=== PATIENT | male | born 1955 | race Caucasian/White ===

== ENCOUNTER 2018-07-02 12:34 | Inpatient (IN) ==
--- NOTE | 2018-07-02 13:07 | ED ---
HPI General Chief complaint: Shortness of Breath/Dyspnea Stated complaint: bilat ankle swelling/rt knee pain/lt hand tingling Time Seen by Provider: 07/02/18 12:53 Source: patient Mode of arrival: ambulatory Limitations: no limitations History of Present Illness HPI narrative: 63-year-old male with history of hypertension on amlodipine, enlarged prostate, chronic back pain, [facility] bilateral lower extremity edema, left hand numbness, dyspnea, right knee pain. Patient reports that the symptoms started 5 days ago. His bilateral lower extremity edema seems to be better in the morning, worse at night. He has some dyspnea at rest which is worse with exertion as well as orthopnea. Patient also complains of right medial knee pain, denying any specific trauma. His pain is mild to moderate, worse with movements and palpation. Denies history of DVT or PE. No chest pain. No cough or hemoptysis. No fevers or chills. Patient is also noticed numbness throughout his entire left hand which also started 5 days ago. He denies weakness in the hand or any focal weakness or paresthesias anywhere else. Related Data Home Medications Medication Instructions Recorded Confirmed amlodipine 10 mg PO DAILY 07/02/18 07/02/18 doxepin 50 mg PO DAILY 07/02/18 07/02/18 gabapentin 600 mg PO DAILY 07/02/18 07/02/18 metoprolol tartrate 50 mg PO DAILY 07/02/18 07/02/18 morphine 30 mg PO DAILY 07/02/18 07/02/18 oxycodone-acetaminophen 1 tab PO Q4-6H PRN 07/02/18 07/02/18 Allergies Allergy/AdvReac Type Severity Reaction Status Date / Time shellfish derived Allergy Anaphylaxis Verified 07/02/18 12:41 Review of Systems ROS: all other systems reviewed are negative PMFSH Medical History Medical History Chronic back pain (Acute) Enlarged prostate (Acute) Hypertension (Acute) Surgical History Surgical History History of appendectomy (Acute) Social History Social History Smoking Status: Never smoker How Often Do You Have a Drink Containing Alcohol: Never Recent Travel in [facility] within the Last 8 Weeks: No Recent Out of Country Travel within the Last 8 Weeks: No Immunization History Tetanus Immunization: <5 Years Exam Narrative Exam Narrative: GENERAL: Well-developed, well-nourished, comfortable, no acute distress. SKIN: Focused skin assessment warm/dry. HEAD: Atraumatic. Normocephalic. EYES: Pupils equal and round. No scleral icterus. No injection or drainage. ENT: Mucous membranes pink and moist. NECK: Trachea midline. No JVD. CARDIOVASCULAR: Regular rate and rhythm. Distal pulses brisk and equal bilaterally. RESPIRATORY: No accessory muscle use. Clear to auscultation. Breath sounds equal bilaterally. GASTROINTESTINAL: Abdomen soft, non-tender, nondistended. MUSCULOSKELETAL: No obvious deformities. No clubbing. No cyanosis. Moderate bilateral lower extremity edema from foot to knee, right greater than left. Bilateral calves are supple and nontender. There is mild tenderness to the right medial knee without skin changes, without obvious deformity, with normal range of motion. Normal cipher expert strength in left hand. NEUROLOGICAL: Awake and alert. No obvious cranial nerve deficits. Motor grossly within normal limits. Normal speech. No focal deficits. Perceived diminished sensation in left hand. PSYCHIATRIC: Appropriate mood and affect; insight and judgment normal. Course Initial Documented Vital Signs Temperature 98.4 F 07/02/18 12:35 Pulse Rate 115 H 07/02/18 12:35 Respiratory Rate 16 07/02/18 12:35 Blood Pressure 126/65 07/02/18 12:35 Pulse Oximetry 97 07/02/18 12:35 Last Documented Vital Signs Temperature 98.4 F 07/02/18 12:35 Pulse Rate 95 H 07/02/18 14:47 Respiratory Rate 20 07/02/18 14:47 Blood Pressure 118/77 07/02/18 14:47 Pulse Oximetry 95 07/02/18 14:47 Medical Decision Making [facility] Narrative Medical decision making narrative: Vital signs reviewed. CBC is remarkable for hemoglobin 10.1, hematocrit 30.9, WBC 1.9, manual neutrophil count of 0.4. Platelet count is 150. CMP is essentially unremarkable. Calculated ANC is 416. Chest x-ray shows no acute disease. Right knee x-ray shows minimal arthritis at the patellofemoral joint. Bilateral lower extremity venous duplex is negative for DVT. Patient was made aware of all findings. States that he has never been told of being neutropenic or anemic in the past. He has not been on any new medications other than doxepin for sleep that was started about 2 months ago. He has not had any fevers. He denies history of HIV or HIV risk factors. No history of IV drug abuse. He does complain of dyspnea and having a difficult time catching his breath especially after exertion. He has not had any melena or hematochezia. Given his severe neutropenia as well as anemia and slight thrombo-cytopenia, the patient will be admitted for further treatment and evaluation and hematology consultation. He was placed on neutropenic precautions. Case discussed with hospitalist Dr. Garcia who will admit the patient to his service. Medical Screen Exam Complete: Yes Emergency Medical Condition: Yes Differential Diagnosis Differential Diagnosis: Pulmonary edema, fluid overload, DVT, metabolic abnormality/electrolyte abnormality, CVA unlikely, venous insufficiency Lab Data Result diagrams: 07/02/18 13:12 07/02/18 13:12 Lab Results 07/02/18 07/02/18 07/02/18 Range/Units 13:12 13:12 13:12 CBC w Diff Slide review pending WBC 1.6 L (4.0-11.0) th/mm3 RBC 3.51 L (4.50-5.90) mil/mm3 Hgb 10.1 L (13.0-17.0) gm/dL Hct 30.9 L (39.0-51.0) % MCV 88.1 (80.0-100.0) fL MCH 28.8 (27.0-34.0) pg MCHC 32.7 (32.0-36.0) % RDW 15.0 (11.6-17.2) % Plt Count 150 (150-450) th/mm3 MPV 9.3 (7.0-11.0) fL WBC Differential Manual diff final Seg Neuts % (Manual) 26 (16-70) % Lymphocytes % (Manual) 59 H (9-44) % Atypical Lymphs % (Man) 8 H (0-0) % Monocytes % (Manual) 5 (0-8) % Eosinophils % (Manual) 2 (0-4) % Abs Neuts (Manual) 0.4 L* (1.8-7.7) th/mm3 Differential Comment . Platelet Estimate Normal (Normal) Platelet Morphology Normal (Normal) Basophilic Stippling Faint H (None) Ovalocytes 1+ H (None) Rouleaux Present H (None) PT 10.9 (9.8-11.6) sec INR 1.1 Ratio APTT 25.7 (23.4-31.7) sec Sodium 138 (136-145) meq/L Potassium 3.6 (3.5-5.1) meq/L Chloride 106 (98-107) meq/L Carbon Dioxide 27.2 (21.0-32.0) meq/L Anion Gap 5 (5-15) meq/L BUN 14 (7-18) mg/dL Creatinine 0.95 (0.60-1.30) mg/dL Estimated GFR 81 L (>89) mL/min Random Glucose 108 H (74-106) mg/dL Calcium 8.4 L (8.5-10.1) mg/dL Total Bilirubin 0.5 (0.2-1.0) mg/dL AST 12 L (15-37) U/L ALT 27 (12-78) U/L Alkaline Phosphatase 46 (45-117) U/L Total Creatine Kinase 115 (39-308) U/L CK-MB (CK-2) 1.2 (0.5-3.6) ng/mL Troponin I Less than 0.02 L (0.02-0.05) ng/mL B-Natriuretic Peptide (0-100) pg/mL Total Protein 7.0 (6.4-8.2) g/dL Albumin 3.8 (3.4-5.0) g/dL 07/02/18 Range/Units 13:12 CBC w Diff WBC (4.0-11.0) th/mm3 RBC (4.50-5.90) mil/mm3 Hgb (13.0-17.0) gm/dL Hct (39.0-51.0) % MCV (80.0-100.0) fL MCH (27.0-34.0) pg MCHC (32.0-36.0) % RDW (11.6-17.2) % Plt Count (150-450) th/mm3 MPV (7.0-11.0) fL WBC Differential Seg Neuts % (Manual) (16-70) % Lymphocytes % (Manual) (9-44) % Atypical Lymphs % (Man) (0-0) % Monocytes % (Manual) (0-8) % Eosinophils % (Manual) (0-4) % Abs Neuts (Manual) (1.8-7.7) th/mm3 Differential Comment Platelet Estimate (Normal) Platelet Morphology (Normal) Basophilic Stippling (None) Ovalocytes (None) Rouleaux (None) PT (9.8-11.6) sec INR Ratio APTT (23.4-31.7) sec Sodium (136-145) meq/L Potassium (3.5-5.1) meq/L Chloride (98-107) meq/L Carbon Dioxide (21.0-32.0) meq/L Anion Gap (5-15) meq/L BUN (7-18) mg/dL Creatinine (0.60-1.30) mg/dL Estimated GFR (>89) mL/min Random Glucose (74-106) mg/dL Calcium (8.5-10.1) mg/dL Total Bilirubin (0.2-1.0) mg/dL AST (15-37) U/L ALT (12-78) U/L Alkaline Phosphatase (45-117) U/L Total Creatine Kinase (39-308) U/L CK-MB (CK-2) (0.5-3.6) ng/mL Troponin I (0.02-0.05) ng/mL B-Natriuretic Peptide 34 (0-100) pg/mL Total Protein (6.4-8.2) g/dL Albumin (3.4-5.0) g/dL Imaging Data Radiologist's impression: Chest X-Ray 07/02/18 12:59 CONCLUSION: Negative for acute process Knee X-Ray 07/02/18 12:59 CONCLUSION: Minimal degenerative change in the patellofemoral joint with no acute fracture or malalignment. Venous Doppler Study 07/02/18 12:59 CONCLUSION: 1. Negative for deep venous thrombosis Discharge Plan Discharge Disposition Patient Disposition: ED Admit(ED Internal Use Only) Discharge Condition Condition: Stable Discharge Order Discharge Orders: ED Use Only Admit Order (Routine); Ordered 07/02/18 Ordered By: Oscar Leonard Discharge Details Diagnosis: Neutropenic, Leukopenia, Anemia, Leg edema Physicians Team ED Provider: Oscar Leonard Primary Care Provider: [facility]ician 's Attending Provider: Armando Garcia Status ED Status: Admitted Patient
[2018-07-02 13:32] LABS: Chloride 106 meq/L (98-107); Potassium 3.6 meq/L (3.5-5.1); Sodium 138 meq/L (136-145)
[2018-07-02 13:35] LABS: Albumin 3.8 g/dL (3.4-5.0); Anion Gap 5 meq/L (5-15); Calcium 8.4 mg/dL (8.5-10.1); Carbon Dioxide 27.2 meq/L (21.0-32.0)
[2018-07-02 13:36] LABS: Blood Urea Nitrogen 14 mg/dL (7-18); Glucose,Random 108 mg/dL (74-106)
[2018-07-02 13:38] LABS: Activated Partial Thrombo Time 25.7 sec (23.4-31.7); Alanine Aminotransferase 27 U/L (12-78); INR 1.1 Ratio; Prothrombin Time 10.9 sec (9.8-11.6)
[2018-07-02 13:39] LABS: Aspartate Aminotransferase 12 U/L (15-37); Glomerular Filtration Rate 81 mL/min (>89)
[2018-07-02 13:40] LABS: Hematocrit 30.9 % (39.0-51.0); Hemoglobin 10.1 gm/dL (13.0-17.0); Mean Corpuscular HGB Conc 32.7 % (32.0-36.0); Mean Corpuscular Hemoglobin 28.8 pg (27.0-34.0); Mean Corpuscular Volume 88.1 fL (80.0-100.0); Mean Platelet Volume 9.3 fL (7.0-11.0); Platelet Count 150 th/mm3 (150-450); Red Blood Count 3.51 mil/mm3 (4.50-5.90)
[2018-07-02 13:41] LABS: Alkaline Phosphatase 46 U/L (45-117); Creatine Kinase 115 U/L (39-308)
--- NOTE | 2018-07-02 13:49 | XR ---
EXAM DATE: 07/02/2018 1:29 PM EST AGE/SEX: 63 years / Male INDICATIONS: Right knee pain and swelling from unknown injury. CLINICAL DATA: This is the patient's initial encounter. Patient reports that signs and symptoms have been present for 1 day and indicates a pain score of 4/10. MEDICAL/SURGICAL HISTORY: None. None. COMPARISON: No prior exams available for comparison. FINDINGS: Bony structures are intact and in normal alignment. Joints are intact without dislocation or signifi cant arthropathy. There is minimal spurring in the patellofemoral joint. Osseous density is normal. Soft tissues are unremarkable. No radiopaque foreign bodies seen. CONCLUSION: Minimal degenerative change in the patellofemoral joint with no acute fracture or malalignment. Electronically signed by: Da Sawyer MD Board Certified Radiologist 07/02/2018 1:48 PM EST
--- NOTE | 2018-07-02 13:51 | US ---
EXAM DATE: 07/02/2018 1:48 PM EST AGE/SEX: 63 years / Male INDICATIONS: Bilateral leg swelling. CLINICAL DATA: This is the patient's initial encounter. Patient reports that signs and symptoms have been present for 4 - 6 days and indicates a pain score of 5/10. MEDICAL/SURGICAL HISTORY: . Chronic back pain. HTN. Appendectomy. COMPARISON: No prior exams available for comparison. TECHNIQUE: Venous ultrasound of both lower extremities was performed from the inguinal ligament to t he proximal calf. Real-time, color Doppler and spectral tracing, compression and augmentation techni ques were used. FINDINGS: Right Leg: Normal compression of the deep venous system from the inguinal region to the proximal bam f. No echogenic clot is seen. Normal response of the venous system to augmentation and respiration. Left Leg: Normal compression of the deep venous system from the inguinal region to the proximal calf . No echogenic clot is seen. Normal response of the venous system to augmentation and respiration. CONCLUSION: 1. Negative for deep venous thrombosis Electronically signed by: Joe Coelho MD Board Certified Radiologist 07/02/2018 1:50 PM EST
[2018-07-02 13:53] LABS: Creatine Kinase MB 1.2 ng/mL (0.5-3.6)
--- NOTE | 2018-07-02 13:57 | XR ---
EXAM DATE: 07/02/2018 1:30 PM EST AGE/SEX: 63 years / Male INDICATIONS: Short of breath. CLINICAL DATA: This is the patient's initial encounter. Patient reports that signs and symptoms have been present for 1 day and indicates a pain score of 0/10. MEDICAL/SURGICAL HISTORY: None. None. COMPARISON: No prior exams available for comparison. FINDINGS: A single AP view of the chest demonstrates the lungs to be symmetrically aerated without evidence of mass, infiltrate or effusion. The cardiomediastinal contours are unremarkable. Osseous structures a re intact. CONCLUSION: Negative for acute process Electronically signed by: Joe Coelho MD Board Certified Radiologist 07/02/2018 1:55 PM EST
[2018-07-02 14:06] LABS: White Blood Count 1.6 th/mm3 (4.0-11.0)
[2018-07-02 14:21] LABS: Atypical Lymphs 8 % (0-0); Eosinophils 2 % (0-4); Lymphocytes 59 % (9-44); Monocytes 5 % (0-8)
[2018-07-02 14:25] LABS: Ovalocytes 1+; Platelet Estimate Normal (Normal); Platelet Morphology Normal (Normal); Rouleaux Present
[2018-07-02] MEDS ORDERED: Acetaminophen 325 MG Tablet PO PRN (15:08)
[2018-07-02] MEDS: oxyCODONE/Acetaminophen 10/325 Tablet PO PRN ×2 (15:32→21:25)
--- NOTE | 2018-07-02 17:31 | P.HPIM ---
History of Present Illness Primary Care Physician: [facility] Chief Complaint: Leg Swelling, Dyspnea History of Present Illness: Mr. Gramajo is a 63-year-old male. He comes into the hospital today complaining of bilateral lower extremity swelling. He is also been having some mild shortness of breath. Workup reveals that he has a significant neutropenia. He has no prior history of neutropenia. No familial history of neutropenia. Baseline medical conditions are hypertension he is on amlodipine which may be contributory to his bilateral lower extremity edema but he says has been on this for 2 years without problems. Etiology for the neutropenia could also be related to bilateral lower extremity edema and pulmonary edema. No changes in back pain. Benign prostatic hypertrophy is present at baseline, he takes doxepin for this and started this recently. No other complaints at this time. Inpatient Certification Inpatient Certification: I certify that the inpatient services were ordered in accordance with Medicare regulations governing the order. This includes certification that hospital inpatient services are reasonable and necessary and in the case of services not specified as inpatient-only under 42 CFR 419.22(n), that they are appropriately provided as inpatient services in accordance to with the 2-midnight benchmark under 43 CFR 412.3(e) Estimated Total Length of Stay (Days): 5 Plans for Post Hospital Care: Not yet determined Review of Systems Constitutional: No fevers, no chills no night sweats, no fatigue, no weakness Eyes: No eye pain, no blurry vision, no loss of vision ENT: No sore throat, no ear pain, no rhinorrhea Cardiovascular: No chest pain, no tachycardia, no palpitations, no syncope Respiratory: No wheezing, no cough, shortness of breath Gastrointestinal: No abdominal pain, no black tarry stools, no bright red blood per rectum, no vomiting, no diarrhea Musculoskeletal: No joint pain, no muscle cramps, no stiffness, bilateral lower extremity edema Integumentary: No rash, no ulcers, no drainage Neurologic: No sensory loss, no loss of motor function, no dizziness Psychiatric: No behavioral changes, no hallucinations, no suicidal ideations [facility] Medical History Medical History Chronic back pain (Acute) Enlarged prostate (Acute) Hypertension (Acute) Surgical History Surgical History History of appendectomy (Acute) Family History Family History Other Osteoarthritis Social History Social History Substance History: No History of Abuse Second Hand Smoke Exposure: No Smoking Status: Never smoker How Often Do You Have a Drink Containing Alcohol: Never Recent Travel in [facility] within the Last 8 Weeks: No Recent Out of Country Travel within the Last 8 Weeks: No Immunization History Tetanus Immunization: <5 Years Medications and Allergies Allergies Allergy/AdvReac Type Severity Reaction Status Date / Time shellfish derived Allergy Anaphylaxis Verified 07/02/18 12:41 Home Medications Medication Instructions Recorded Confirmed Type amlodipine 10 mg PO DAILY 07/02/18 07/02/18 History doxepin 50 mg PO DAILY 07/02/18 07/02/18 History gabapentin 600 mg PO DAILY 07/02/18 07/02/18 History metoprolol tartrate 50 mg PO DAILY 07/02/18 07/02/18 History morphine 30 mg PO DAILY 07/02/18 07/02/18 History oxycodone-acetaminophen 1 tab PO Q4-6H PRN 07/02/18 07/02/18 History Active Medications: Active Medications Acetaminophen (Tylenol) 650 mg PO Q4H PRN PRN Reason: Temp > 100.4 Al Hydroxide/Mg Hydroxide (Milk Of [place] Linkkami [place]) 30 ml PO Q12H PRN PRN Reason: Mild Constipation Enalaprilat (Vasotec Inj) 1.25 mg IV.PUSH Q6H PRN PRN Reason: SBP>160, DBP>90 Furosemide (Lasix Inj) 20 mg IV.PUSH ONCE ONE Stop: 07/02/18 17:21 Gabapentin (Neurontin) 600 mg PO DAILY MARKIE Metoprolol Tartrate (Lopressor) 50 mg PO DAILY MARKIE Morphine Sulfate (Oramorph Sr) 30 mg PO DAILY MARKIE Ondansetron HCl (Zofran Inj) 4 mg IV.PUSH Q6H PRN PRN Reason: NAUSEA OR VOMITING Oxycodone/Acetaminophen (Percocet 10/325 Mg) 1 tab PO Q4H PRN PRN Reason: Pain 7 to 10 Last Admin: 07/02/18 15:32 Dose: 1 tab Oxycodone/Acetaminophen (Percocet 5/325 Mg) 1 tab PO Q4H PRN PRN Reason: Pain 3 to 6 Sodium Chloride (Ns Flush) 2 ml IV.FLUSH BID MARKIE Sodium Chloride (Ns Flush) 2 ml IV.FLUSH PRN PRN PRN Reason: FLUSH AFTER USING IV ACCESS Physical Exam Vital signs: Vital Signs 07/02/18 12:35 07/02/18 12:59 07/02/18 13:19 Temperature 98.4 F Pulse Rate 115 H 89 Respiratory Rate 16 Blood Pressure 126/65 Pulse Oximetry 97 96 07/02/18 13:45 07/02/18 14:47 07/02/18 16:09 Temperature Pulse Rate 89 95 H 93 H Respiratory Rate 20 20 20 Blood Pressure 133/76 118/77 124/84 Pulse Oximetry 97 95 Intake & Output 07/01/18 07/02/18 07/02/18 18:59 06:59 18:59 Weight 86 kg Narrative: GENERAL: NAD, A&Ox3 HEAD: Normocephalic. NECK: Supple, trachea midline. No lymphadenopathy. EYES: No scleral icterus. No injection or drainage. CARDIOVASCULAR: Regular rate and rhythm without murmurs, gallops, or rubs. RESPIRATORY: Breath sounds equal bilaterally. No accessory muscle use. Trace pulmonary edema GASTROINTESTINAL: Abdomen soft, non-tender, nondistended. MUSCULOSKELETAL: No cyanosis, trace lower extremity edema SKIN: Warm and dry. NEURO: No focal neurological deficits. Results Labs CBC & Chem 7: 07/02/18 13:12 07/02/18 13:12 Imaging Impressions Chest X-Ray 07/02/18 12:59 CONCLUSION: Negative for acute process Knee X-Ray 07/02/18 12:59 CONCLUSION: Minimal degenerative change in the patellofemoral joint with no acute fracture or malalignment. Venous Doppler Study 07/02/18 12:59 CONCLUSION: 1. Negative for deep venous thrombosis Caprini VTE Risk Assessment Caprini VTE Risk Assessment: No/Low Risk (score <= 1) Caprini Risk Assessment Model: Point Value = 1 Point Value = 2 Point Value = 3 Point Value = 5 Age 41-60 Minor surgery BMI > 25 kg/m2 Swollen legs Varicose veins or History of unexplained or recurrent spontaneous Oral contraceptives or hormone replacement Sepsis (< 1 month) Serious lung disease, including pneumonia (< 1 month) Abnormal pulmonary function Acute myocardial infarction Congestive heart failure (< 1 month) History of inflammatory bowel disease Medical patient at bed rest Age 61-74 Arthroscopic surgery Major open surgery (> 45 min) Laparoscopic surgery (> 45 min) Malignancy Confined to bed (> 72 hours) Immobilizing plaster cast Central venous access Age >= 75 History of VTE Family history of VTE Factor V Leiden Prothrombin [id number] Lupus anticoagulant Anticardiolipin antibodies Elevated serum homocysteine Heparin-induced thrombocytopenia Other congenital or acquired thrombophilia Stroke (< 1 month) Elective arthroplasty Hip, pelvis, or leg fracture Acute spinal cord injury (< 1 month) Prophylaxis Regimen: Total Risk Factor Score Risk Level Prophylaxis Regimen 0-1 Low Early ambulation 2 Moderate Order ONE of the following: *Sequential Compression Device (SCD) *Heparin 5000 units SQ BID 3-4 Higher Order ONE of the following medications: *Heparin 5000 units SQ TID *Enoxaparin/Lovenox 40 mg SQ daily (WT < 150 kg, CrCl > 30 mL/min) *Enoxaparin/Lovenox 30 mg SQ daily (WT < 150 kg, CrCl > 10-29 mL/min) *Enoxaparin/Lovenox 30 mg SQ BID (WT < 150 kg, CrCl > 30 mL/min) AND/OR *Sequential Compression Device (SCD) 5 or more Highest Order ONE of the following medications: *Heparin 5000 units SQ TID (Preferred with Epidurals) *Enoxaparin/Lovenox 40 mg SQ daily (WT < 150 kg, CrCl > 30 mL/min) *Enoxaparin/Lovenox 30 mg SQ daily (WT < 150 kg, CrCl > 10-29 mL/min) *Enoxaparin/Lovenox 30 mg SQ BID (WT < 150 kg, CrCl > 30 mL/min) AND *Sequential Compression Device (SCD) Assessment and Plan Plan 63-year-old male admitted secondary to neutropenia Neutropenia No prior history of this Hematology consulted Plan is for bone marrow biopsy Transfer to [facility] main for bone marrow biopsy Follow CBC Neutropenic Percautions Hypertension Hold amlodipine for possibility of bilateral lower extremity edema contribution Continue metoprolol Chronic back pain Continue morphine As needed Percocet Bilateral Lower Extremity Edema Pulmonary Edema Mild Lasix provided, one time BPH Continue doxepin DVT Prophylaxis SCDs
--- NOTE | 2018-07-02 17:36 | MB ---
cc: Uziel Oneil MD DATE: 07/02/2018 REQUESTING PHYSICIAN: Armando Garcia MD REASON FOR CONSULTATION: Evaluation of neutropenia. HISTORY OF PRESENT ILLNESS: This is a 63-year-old gentleman with no significant past medical history other than a back injury, which caused him disability, has been feeling numbness in the left hand and also having right knee pain and bilateral leg swellings. The patient was asked by [facility] to go to the emergency room and was evaluated in the ER and found to have a neutropenia with 400 neutrophils and total white count of 1600, hemoglobin of 10.1, and platelets 150. I was asked to evaluate him for his neutropenia. The patient claims that he did not ever have any blood abnormalities and was never seen by a health program analyst and did not have bone marrow biopsy in the past. Currently, he is otherwise asymptomatic other than the symptoms mentioned above, which are only of 1 week to 10 days' duration. He was evaluated in the ER with ultrasound Dopplers of bilateral lower extremities, which were negative, and a chest x-ray was negative. He did not have a CT scan. REVIEW OF SYSTEMS: Negative for headaches, neck pain, motor or sensory symptoms other than the tingling in the left hand for the last 1 week to 10 days. He has no gait difficulties and does not have any imbalance. No diplopia, dysphagia or dysphonia. No cough or chest pain. He does have shortness of breath on exertion, which is also new. He has no fevers, night sweats. No weight loss. No abdominal pain, distension blood in the stools or black stools, nosebleeds, gum bleeds. No frequency, urgency or hematuria. PAST MEDICAL HISTORY: Hypertension and no known coronary artery disease. No history of congestive heart failure. He has enlarged prostate and no known history of malignancy. PAST SURGICAL HISTORY: Appendectomy as a teenager. SOCIAL HISTORY: Nonsmoker, non-alcohol abuser. He did admit to drink frequently until 2006 but did not have any history of alcoholic cirrhosis or splenomegaly. In addition, he also denies knowledge of hepatitis B or C infection and HIV risk factors. He is not working at this time, being disabled from his back injury for which did not require surgery. He lives with his , and he has 4 daughters, all healthy. FAMILY HISTORY: No family history of blood dyscrasias. MEDICATIONS: He was on lisinopril, and he stopped it recently according to him. PHYSICAL EXAMINATION: GENERAL: Well-appearing young man in no apparent distress. Healthy-appearing, looking younger than stated age. VITAL SIGNS: Stable with blood pressure 144/84, pulse 93 per minute, afebrile with saturation of 95%-97% on room air, comfortable appearing, no apparent distress. Pallor present. No icterus. No palpable adenopathy in the neck or axilla. HEENT: Significant for the absence of gum bleeding or hypertrophy. No petechiae on the palate. No oropharyngeal lesions. No thrush. NEUROLOGIC: He is alert and oriented x4. No meningeal signs. Nonfocal. Gait not tested. NECK: No JVD. CARDIOVASCULAR: S1, S2, regular rate and rhythm. LUNGS: Bilaterally clear without crackles or wheeze. ABDOMEN: Soft and nontender without hepatosplenomegaly. No free fluid clinically. EXTREMITIES: Bipedal lower extremity edema, right more than left, with no calf tenderness. Negative Homans sign. RECTAL: Deferred. LABORATORY DATA: White count 1.6, hemoglobin 10.1, hematocrit 30.9, MCV is 88.1, platelets 150, neutrophils 26%, ANC of 400, lymphocytes 59%, atypical lymphocytes 8%, monocytes 5%, and eosinophils 2%. Basophilic stippling is faint and rouleaux formation present on the blood smear. PT, PTT are normal. Liver enzymes are normal. BNP is 34. Troponin I negative. Total protein 7, albumin 3.8. IMPRESSION: This is a 63-year-old gentleman with apparent new onset acute neutropenia with unexplained symptoms of bilateral lower extremity edema and knee pain and tingling in the left hand. Peripheral smear concerning for atypical lymphocytes which could be blasts, and I called and left a message with pathologist to call me back. The differential diagnosis is acute leukemia versus myelodysplastic syndrome. There is no history of splenomegaly or risk factors for alcoholic cirrhosis at this time, and hence, we will proceed directly with a bone marrow biopsy. In the interim, I will order his LDH, uric acid and put him on neutropenic precautions without starting on Neupogen as he would need the bone marrow biopsy. I discussed with the patient, and he agreed to the plan. Hematology service will follow up in the hospital. Discussed with Dr. Garcia. MD Saúl Gore , 04:46 PM , 05:01 PM
[2018-07-02] MEDS ORDERED: Morphine Sulfate 30 MG SR Tablet PO ONE (22:18)
[2018-07-03 06:07] LABS: Hematocrit 30.2 % (39.0-51.0); Hemoglobin 10.3 gm/dL (13.0-17.0); Mean Corpuscular Hemoglobin 29.9 pg (27.0-34.0); Mean Corpuscular Volume 87.9 fL (80.0-100.0); Mean Platelet Volume 9.7 fL (7.0-11.0); Platelet Count 144 th/mm3 (150-450); Red Blood Count 3.44 mil/mm3 (4.50-5.90); Red Cell Distribution Width 15.7 % (11.6-17.2); White Blood Count 2.2 th/mm3 (4.0-11.0)
[2018-07-03 06:30] LABS: Alanine Aminotransferase 27 U/L (12-78); Albumin 3.6 g/dL (3.4-5.0); Anion Gap 6 meq/L (5-15); Aspartate Aminotransferase 13 U/L (15-37); Blood Urea Nitrogen 15 mg/dL (7-18); Calcium 8.4 mg/dL (8.5-10.1); Carbon Dioxide 28.1 meq/L (21.0-32.0); Chloride 107 meq/L (98-107); Glomerular Filtration Rate 72 mL/min (>89); Glucose,Random 83 mg/dL (74-106); Sodium 141 meq/L (136-145)
[2018-07-03 06:32] LABS: Alkaline Phosphatase 45 U/L (45-117); Total Protein 6.8 g/dL (6.4-8.2)
[2018-07-03 07:20] LABS: Lymphocytes 73 % (9-44); Monocytes 3 % (0-8)
[2018-07-03 07:21] LABS: Ovalocytes 1+
[2018-07-03 07:22] LABS: Platelet Estimate Normal (Normal); Platelet Morphology Normal (Normal)
[2018-07-03] MEDS: Morphine Sulfate 30 MG SR Tablet PO SCH (08:39)
[2018-07-03] MEDS: Gabapentin 300 MG Capsule PO SCH (08:40)
[2018-07-03] MEDS: oxyCODONE/Acetaminophen 10/325 Tablet PO PRN ×4 (08:40→23:18)
--- NOTE | 2018-07-03 09:21 | P.PNONC ---
Subjective Interval history: Afebrile. Patient lying in bed, no acute distress. On neutropenic precautions, awaiting bone marrow biopsy today. He denies chest pain shortness of breath or bleeding. Reports chronic back pain. Objective Vital Signs/Intake & Output: Vital Signs 07/02/18 12:35 07/02/18 12:59 07/02/18 13:19 Temperature 98.4 F Pulse Rate 115 H 89 Respiratory Rate 16 Blood Pressure 126/65 Pulse Oximetry 97 96 07/02/18 13:45 07/02/18 14:47 07/02/18 16:09 Temperature Pulse Rate 89 95 H 93 H Respiratory Rate 20 20 20 Blood Pressure 133/76 118/77 124/84 Pulse Oximetry 97 95 07/02/18 16:40 07/02/18 18:37 07/02/18 20:48 Temperature 97 F L 98.3 F Pulse Rate 92 H 96 H Respiratory Rate 20 20 Blood Pressure 140/83 146/91 H Pulse Oximetry 97 97 95 07/02/18 21:55 07/02/18 22:58 07/03/18 00:48 Temperature 98.2 F Pulse Rate 90 Respiratory Rate 18 18 16 Blood Pressure 125/80 Pulse Oximetry 98 07/03/18 04:30 07/03/18 08:00 Temperature 98.1 F 97.9 F Pulse Rate 85 87 Respiratory Rate 15 18 Blood Pressure 122/84 130/76 Pulse Oximetry 97 96 Intake & Output 07/02/18 07/03/18 07/03/18 18:59 06:59 18:59 Intake Total 200 / 200 0 / 0 Balance 200 / 200 0 / 0 Weight 86 kg 86.2 kg Intake: Oral 200 / 200 0 / 0 Other: # Voids 1 1 Weight On Admission 86 kg Result Diagrams: 07/03/18 05:05 07/03/18 05:05 Laboratory Results: Laboratory Results - last 24 hr 07/02/18 07/02/18 07/02/18 13:12 13:12 13:12 CBC w Diff Slide review pending WBC 1.6 L RBC 3.51 L Hgb 10.1 L Hct 30.9 L MCV 88.1 MCH 28.8 MCHC 32.7 RDW 15.0 Plt Count 150 MPV 9.3 Prelim Diff (Auto) WBC Differential Manual diff final Seg Neuts % (Manual) 26 Lymphocytes % (Manual) 59 H Atypical Lymphs % (Man) 8 H Monocytes % (Manual) 5 Eosinophils % (Manual) 2 Abs Neuts (Manual) 0.4 L* Differential Comment . Platelet Estimate Normal Platelet Morphology Normal Basophilic Stippling Faint H Ovalocytes 1+ H Rouleaux Present H PT 10.9 INR 1.1 APTT 25.7 Sodium 138 Potassium 3.6 Chloride 106 Carbon Dioxide 27.2 Anion Gap 5 BUN 14 Creatinine 0.95 Estimated GFR 81 L Random Glucose 108 H Uric Acid Calcium 8.4 L Total Bilirubin 0.5 AST 12 L ALT 27 Alkaline Phosphatase 46 Lactate Dehydrogenase Total Creatine Kinase 115 CK-MB (CK-2) 1.2 Troponin I Less than 0.02 L B-Natriuretic Peptide Total Protein 7.0 Albumin 3.8 07/02/18 07/02/18 07/03/18 13:12 13:12 05:05 CBC w Diff WBC 2.2 L RBC 3.44 L Hgb 10.3 L Hct 30.2 L MCV 87.9 MCH 29.9 MCHC 34.0 RDW 15.7 Plt Count 144 L MPV 9.7 Prelim Diff (Auto) Manual diff required WBC Differential Manual diff final Seg Neuts % (Manual) 24 Lymphocytes % (Manual) 73 H Atypical Lymphs % (Man) Monocytes % (Manual) 3 Eosinophils % (Manual) Abs Neuts (Manual) 0.5 L* Differential Comment . Platelet Estimate Normal Platelet Morphology Normal Basophilic Stippling Ovalocytes 1+ H Rouleaux PT INR APTT Sodium Potassium Chloride Carbon Dioxide Anion Gap BUN Creatinine Estimated GFR Random Glucose Uric Acid 5.0 Calcium Total Bilirubin AST ALT Alkaline Phosphatase Lactate Dehydrogenase 183 Total Creatine Kinase CK-MB (CK-2) Troponin I B-Natriuretic Peptide 34 Total Protein Albumin 07/03/18 05:05 CBC w Diff WBC RBC Hgb Hct MCV MCH MCHC RDW Plt Count MPV Prelim Diff (Auto) WBC Differential Seg Neuts % (Manual) Lymphocytes % (Manual) Atypical Lymphs % (Man) Monocytes % (Manual) Eosinophils % (Manual) Abs Neuts (Manual) Differential Comment Platelet Estimate Platelet Morphology Basophilic Stippling Ovalocytes Rouleaux PT INR APTT Sodium 141 Potassium 4.0 Chloride 107 Carbon Dioxide 28.1 Anion Gap 6 BUN 15 Creatinine 1.05 Estimated GFR 72 L Random Glucose 83 Uric Acid Calcium 8.4 L Total Bilirubin 0.7 AST 13 L ALT 27 Alkaline Phosphatase 45 Lactate Dehydrogenase Total Creatine Kinase CK-MB (CK-2) Troponin I B-Natriuretic Peptide Total Protein 6.8 Albumin 3.6 Imaging Studies: Impressions Chest X-Ray 07/02/18 12:59 CONCLUSION: Negative for acute process Knee X-Ray 07/02/18 12:59 CONCLUSION: Minimal degenerative change in the patellofemoral joint with no acute fracture or malalignment. Venous Doppler Study 07/02/18 12:59 CONCLUSION: 1. Negative for deep venous thrombosis Medications: Active Medications Generic Name Dose Route Start Last Admin Trade Name Freq PRN Reason Stop Dose Admin Doxepin HCl 50 mg 07/02/18 21:00 07/02/18 21:24 Sinequan PO 50 mg HS MARKIE Administration Gabapentin 600 mg 07/03/18 09:00 07/03/18 08:40 Neurontin PO 600 mg DAILY MARKIE Administration Morphine Sulfate 30 mg 07/03/18 09:00 07/03/18 08:39 Oramorph Sr PO 30 mg DAILY MARKIE Administration Oxycodone/Acetaminophen 1 tab 07/02/18 15:10 07/03/18 08:40 Percocet 10/325 Mg PO 1 tab Q4H PRN Administration Pain 7 to 10 Sodium Chloride 2 ml 07/02/18 21:00 07/02/18 21:26 Ns Flush IV.FLUSH 2 ml BID MARKIE Administration Objective Remarks: GENERAL: Well-nourished, well-developed male patient, no acute distress. SKIN: Warm and dry. HEAD: Normocephalic. EYES: No scleral icterus. No injection or drainage. NECK: Supple, trachea midline. CARDIOVASCULAR: Regular rate and rhythm without murmurs. RESPIRATORY: Anterior breath sounds clear, equal bilaterally. No accessory muscle use. GASTROINTESTINAL: Abdomen soft, non-tender, nondistended. EXTREMITIES: No cyanosis, or edema. MUSCULOSKELETAL: Adequate muscle tone. NEUROLOGICAL: No obvious focal deficit. Awake, alert, and oriented x3. PSYCHIATRIC: Appropriate mood and affect; insight and judgment normal. Assessment/Plan - Plan Mr. Gramajo is a pleasant 63-year-old male patient currently hospitalized with neutropenia. Plan: 1. Neutropenia, ANC 500. Continue neutropenic precautions. Patient scheduled for bone marrow biopsy today. Differentials include acute leukemia versus myeloproliferative disorders. 2. LDH and uric acid are within normal limits. 3. Continue to monitor daily CBC, continue neutropenic precautions. Await bone marrow biopsy results. - Attending Statement Pt seen in RM 137. Doing well, with decreased leg swellings and SOB. BM bx site without evidence of bleeding. No tenderness. Rest of PE unchanged. Labs reviewed. Await BM bx. MDS vs AML. D/w pt. Port placement in AM if prelim result of BM bx is consistent with AML. D/w pt. Continue neutropenic precautions and abx without neupgen until AML ruled out. Will f/u.
--- NOTE | 2018-07-03 10:13 | ECHRPT ---
Indication: SHORTNESS OF BREATH CONCLUSIONS Normal left ventricular size. Mild concentric left ventricular hypertrophy. The left ventricular systolic function is hyperdynamic with an estimated ejection fraction in the ra nge of 65- 70%. Trace mitral valve regurgitation. There is trace tricuspid valve regurgitation. The estimated pulmonary arterial pressure is 42.5 mmHg. Trace aortic valve regurgitation. BP: / HR: Rhythm: Sinus MEASUREMENTS (Male / Female) Normal Values Technical Quality:Fair 2D ECHO LV Diastolic Diameter PLAX 5.5 cm 4.2 - 5.9 / 3.9 - 5.3 cm LV Systolic Diameter PLAX 3.8 cm IVS Diastolic Thickness 1.1 cm 0.6 - 1.0 / 0.6 - 0.9 cm LVPW Diastolic Thickness 1.1 cm 0.6 - 1.0 / 0.6 - 0.9 cm LV Relative Wall Thickness 0.4 RV Internal Dim ED PLAX 2.1 cm LVOT Diameter 2.0 cm Aortic Root Diameter 3.2 cm LA Systolic Diameter LX 3.5 cm 3.0 - 4.0 / 2.7 - 3.8 cm M-MODE AV Cusp Separation MM 2.0 cm DOPPLER AV Peak Velocity 130.0 cm/s AV Peak Gradient 6.8 mmHg AV Mean Gradient 4.0 mmHg AV Velocity Time Integral 23.6 cm LVOT Peak Velocity 115.0 cm/s LVOT Peak Gradient 5.3 mmHg LVOT Velocity Time Integral 22.2 cm AV Area Cont Eq vti 3.0 cm AV Area Cont Eq pk 2.8 cm Mitral E Point Velocity 83.9 cm/s Mitral A Point Velocity 92.8 cm/s Mitral E to A Ratio 0.9 LV E' Lateral Velocity 9.1 cm/s Mitral E to LV E' Lateral Ratio 9.3 LV E' Septal Velocity 9.1 cm/s Mitral E to LV E' Septal Ratio 9.3 TR Peak Velocity 285.0 cm/s TR Peak Gradient 32.5 mmHg Right Atrial Pressure 10.0 mmHg Pulmonary Artery Systolic Pressu 42.5 mmHg Right Ventricular Systolic Press 42.5 mmHg PV Peak Velocity 82.7 cm/s PV Peak Gradient 2.7 mmHg FINDINGS LEFT VENTRICLE Normal left ventricular size. Mild concentric left ventricular hypertrophy. The left ventricular systolic function is hyperdynamic with an estimated ejection fraction in the ra nge of 65- 70%. RIGHT VENTRICLE Normal right ventricular size and systolic function. LEFT ATRIUM The left atrial size is normal. RIGHT ATRIUM The right atrial size is normal. ATRIAL SEPTUM Normal atrial septal thickness without atrial level shunting by limited color doppler interrogation. AORTA The aortic root and proximal ascending aorta are normal in size on limited imaging. MITRAL VALVE Trace mitral valve regurgitation. AORTIC VALVE Trileaflet aortic valve. No aortic valve stenosis. Trace aortic valve regurgitation. TRICUSPID VALVE There is trace tricuspid valve regurgitation. The estimated pulmonary arterial pressure is 42.5 mmHg. PULMONARY VALVE No pulmonary valve regurgitation or stenosis. VESSELS The inferior vena cava is normal in size. PERICARDIUM No pericardial effusion. Chad Javed MD, FACC (Electronically Signed) Final Date:03 July 2018 10:13
--- NOTE | 2018-07-03 11:41 | ECG ---
Date Performed: 07/02/2018 Time Performed: 13:46:05 PTAGE: 63 years EKG: Sinus rhythm MARKED LEFT AXIS DEVIATION ABNORMAL ECG NO PREVIOUS TRACING DOCTOR: Nomi Ewing Interpretating Date/Time 07/03/2018 11:37:51
[2018-07-03] MEDS: Metoprolol Tartrate 50 MG Tablet PO SCH (12:46)
[2018-07-03] MEDS ORDERED: fentaNYL Citrate Inj 250 MCG/5 ML Ampul ONE (13:44)
[2018-07-03] MEDS ORDERED: Lidocaine 1%/Epinephrine 1:100,000 Inj 20 ML Vial I-DERMAL ONE (14:48)
--- NOTE | 2018-07-03 15:00 | P.RAD ---
Post Procedure Progress Note - Pre Procedure Diagnosis (1) Neutropenic (2) Leukopenia (3) Anemia - Post Procedure Diagnosis (1) Neutropenic (2) Leukopenia (3) Anemia - Procedure Information Procedure Date: 07/03/18 Supervising Radiologist: Fabian Reagan MD Anesthesia: Local, Analgesia, Conscious Sedation - Plan of Activity Patient to Unit: ROPU Patient Condition: Good See PACS Report for procedural detail/treatment. Biopsy CT right Bone Marrow Specimen: Core Biopsy Fluid Description: Bloody
--- NOTE | 2018-07-03 15:36 | P.PNIM ---
Subjective Interval history: Nursing denies any setback since last night. Patient himself denies any shortness of breath today. Says his leg swelling is much improved today. Denies nausea vomiting fevers. No cough. Physical Exam Vital signs: Vital Signs 07/02/18 16:09 07/02/18 16:40 07/02/18 18:37 Temperature 97 F L Pulse Rate 93 H 92 H Respiratory Rate 20 20 Blood Pressure 124/84 140/83 Pulse Oximetry 97 97 07/02/18 20:48 07/02/18 21:55 07/02/18 22:58 Temperature 98.3 F Pulse Rate 96 H Respiratory Rate 20 18 18 Blood Pressure 146/91 H Pulse Oximetry 95 07/03/18 00:48 07/03/18 04:30 07/03/18 08:00 Temperature 98.2 F 98.1 F 97.9 F Pulse Rate 90 85 87 Respiratory Rate 16 15 18 Blood Pressure 125/80 122/84 130/76 Pulse Oximetry 98 97 98 07/03/18 12:00 07/03/18 14:45 07/03/18 15:00 Temperature 99 F 98 F Pulse Rate 76 75 75 Respiratory Rate 18 Blood Pressure 117/80 132/89 118/67 Pulse Oximetry 96 07/03/18 15:15 Temperature Pulse Rate 72 Respiratory Rate Blood Pressure 110/72 Pulse Oximetry Intake & Output 07/02/18 07/03/18 07/03/18 18:59 06:59 18:59 Intake Total 200 / 200 0 / 0 Balance 200 / 200 0 / 0 Weight 86 kg 86.2 kg Intake: Oral 200 / 200 0 / 0 Other: # Voids 1 1 Weight On Admission 86 kg Narrative: Clear lungs bilaterally, unlabored breathing Heart sounds regular rate and rhythm, no murmurs Awake alert, no acute distress Right lower extremity has very mild edema, none on the left Moves all 4 extremities deliberately without issue Results Labs CBC & Chem 7: 07/03/18 05:05 07/03/18 05:05 Assessment and Plan Plan 63-year-old white male who presented to the ER with shortness of breath and lower extremity edema was admitted for neutropenia Shortness of breath - resolved Lower extremity edema Possible diastolic heart failure as EF is within normal limits Lower extremity edema could also come from Norvasc which has been stopped. Counseled the patient that he should only take Lasix as needed for lower extremity edema for now and to follow-up with his PCP as an outpatient to monitor her blood pressure control. Neutropenia No sign of fever at this time, bone marrow biopsy is in order, oncology waiting to R/O acute leukemia. heparin after procedure if plts stable Progress Note: Quality VTE Deep Vein Thrombosis/Pulmonary Embolism Present on Admission: No
--- NOTE | 2018-07-03 16:44 | CT ---
EXAM DATE: 07/03/2018 2:47 PM EST AGE/SEX: 63 years / Male INDICATIONS: Neutropenia leukemia vs. MDS CLINICAL DATA: This is the patient's initial encounter. Patient reports that signs and symptoms have been present for 1 day and indicates a pain score of 0/10. MEDICAL/SURGICAL HISTORY: Hypertension. Chronic back pain. Enlarged prostate. Appendectomy. COMPARISON: No prior exams available for comparison. SEDATION TIME (min): 15 BIOPSY SITE: Right bone marrow MEDICATION(S): 35mg midazolam (Versed) IV 200mcg fentanyl (Sublimaze) IV DEVICE(S): 11 gauge Bone marrow biopsy needle One . . PROCEDURE: CT guided Right bone marrow biopsy Prior to the procedure informed consent was obtained. Any appropriate prior imaging studies were rev iewed. Using automated exposure control and adjustment of the mA and/or kV according to patient size , radiation dose was kept as low as reasonably achievable to obtain optimal diagnostic quality images . DICOM format image data is available electronically for review and comparison. The site was prepped in a sterile fashion. Full sterile technique was used, including cap, mask, colette rile gloves and gown and a large sterile sheet. Hand hygiene and 2% chlorhexidine and/or betadine/al cohol prep was utilized per protocol for cutaneous antisepsis. The skin and subcutaneous tissues wer e infiltrated with local anesthetic solution. With CT guidance the previously identified target was localized. Biopsy was performed using the presc ribed needle as above. Following biopsy marrow aspiration was performed with repeat puncture. Adequa te hemostasis was obtained with compression at the puncture site. Follow-up CT scan reveals no hemorrhage. Conscious sedation was performed with the prescribed dosages and duration as above in the presence of an independent trained radiology nurse to assist in the monitoring of the patient. EKG and oximetry remained stable throughout the procedure. The patient tolerated the procedure well and there were no complications. The patient was sent to Radiology Outpatient Unit in stable condition. CONCLUSION: 1. Uncomplicated CT guided bone marrow aspirate. 2. Uncomplicated CT guided bone marrow biopsy. Electronically signed by: Fabian Reagan MD Board Certified Radiologist 07/03/2018 4:42 PM EST
[2018-07-03 16:51] LABS: Iron Stain Bone Marrow Done
[2018-07-03] MEDS ORDERED: Morphine Sulfate 30 MG SR Tablet PO ONE (22:34)
[2018-07-04] MEDS: Metoprolol Tartrate 50 MG Tablet PO SCH (09:01)
[2018-07-04] MEDS: Morphine Sulfate 30 MG SR Tablet PO SCH (09:01)
[2018-07-04] MEDS: Gabapentin 300 MG Capsule PO SCH (09:01)
--- NOTE | 2018-07-04 12:37 | P.PNONC ---
Objective Vital Signs/Intake & Output: Vital Signs 07/03/18 14:45 07/03/18 15:00 07/03/18 15:15 Temperature 98 F Pulse Rate 75 75 72 Respiratory Rate Blood Pressure 132/89 118/67 110/72 Pulse Oximetry 07/03/18 15:43 07/03/18 16:00 07/03/18 20:00 Temperature 98.1 F 98.1 F Pulse Rate 74 74 Respiratory Rate 18 18 Blood Pressure 131/81 131/81 Pulse Oximetry 96 96 96 07/03/18 22:08 07/04/18 00:18 07/04/18 04:29 Temperature 98.3 F 98.4 F 97.6 F Pulse Rate 75 77 73 Respiratory Rate 18 18 18 Blood Pressure 125/80 134/74 125/79 Pulse Oximetry 97 96 96 07/04/18 07:22 07/04/18 08:10 Temperature 98.1 F Pulse Rate 96 H Respiratory Rate 16 Blood Pressure 131/77 Pulse Oximetry 96 71 L Intake & Output 07/03/18 07/04/18 07/04/18 18:59 06:59 18:59 Intake Total 480 / 480 240 / 240 Balance 480 / 480 240 / 240 Weight 86 kg Intake: Oral 480 / 480 240 / 240 Other: # Voids 4 3 Date of Last Bowel Movement 07/03/18 Result Diagrams: 07/03/18 05:05 07/03/18 05:05 Imaging Studies: Impressions Bone Marrow Biopsy w/ CT 07/03/18 13:15 CONCLUSION: 1. Uncomplicated CT guided bone marrow aspirate. 2. Uncomplicated CT guided bone marrow biopsy. Medications: Active Medications Generic Name Dose Route Start Last Admin Trade Name Alexa PRN Reason Stop Dose Admin Doxepin HCl 50 mg 07/02/18 21:00 07/03/18 22:12 Sinequan PO 50 mg HS MARKIE Administration Gabapentin 600 mg 07/03/18 09:00 07/04/18 09:01 Neurontin PO 600 mg DAILY MARKIE Administration Metoprolol Tartrate 50 mg 07/03/18 09:00 07/04/18 09:01 Lopressor PO 50 mg DAILY MARKIE Administration Morphine Sulfate 30 mg 07/03/18 09:00 07/04/18 09:01 Oramorph Sr PO 30 mg DAILY MARKIE Administration Oxycodone/Acetaminophen 1 tab 07/02/18 15:10 07/03/18 23:18 Percocet 10/325 Mg PO 1 tab Q4H PRN Administration Pain 7 to 10 Sodium Chloride 2 ml 07/02/18 21:00 07/04/18 09:01 Ns Flush IV.FLUSH 2 ml BID MARKIE Administration Objective Remarks: GENERAL: Well-nourished, well-developed patient. SKIN: Warm and dry. HEAD: Normocephalic. EYES: No scleral icterus. No injection or drainage. NECK: Supple, trachea midline. No JVD or lymphadenopathy. LYMPHATIC: No adenopathy. CARDIOVASCULAR: Regular rate and rhythm without murmurs. RESPIRATORY: Breath sounds equal bilaterally. No accessory muscle use. GASTROINTESTINAL: Abdomen soft, non-tender, nondistended. EXTREMITIES: No cyanosis, or edema. MUSCULOSKELETAL: Adequate muscle tone. NEUROLOGICAL: No obvious focal deficit. Awake, alert, and oriented x3. PSYCHIATRIC: Appropriate mood and affect; insight and judgment normal. Assessment/Plan - Plan Mr. rGamajo is a pleasant 63-year-old male patient currently hospitalized with neutropenia. Plan: 1. Neutropenia, ANC 500. Continue neutropenic precautions. Patient scheduled for bone marrow biopsy today. Differentials include acute leukemia versus myeloproliferative disorders. 2. LDH and uric acid are within normal limits. 3. Continue to monitor daily CBC, continue neutropenic precautions. Await bone marrow biopsy results.
--- NOTE | 2018-07-04 18:20 | P.PNIM ---
Subjective Interval history: Patient has no new complaints. Nurse does mention to me he takes his pain medicine 3 times a day at home. Physical Exam Vital signs: Vital Signs 07/03/18 20:00 07/03/18 22:08 07/04/18 00:18 Temperature 98.3 F 98.4 F Pulse Rate 75 77 Respiratory Rate 18 18 Blood Pressure 125/80 134/74 Pulse Oximetry 96 97 96 07/04/18 04:29 07/04/18 07:22 07/04/18 08:10 Temperature 97.6 F 98.1 F Pulse Rate 73 96 H Respiratory Rate 18 16 Blood Pressure 125/79 131/77 Pulse Oximetry 96 96 71 L 07/04/18 12:00 Temperature 98.5 F Pulse Rate 71 Respiratory Rate 16 Blood Pressure 129/83 Pulse Oximetry 96 Intake & Output 07/03/18 07/04/18 07/04/18 18:59 06:59 18:59 Intake Total 480 / 480 240 / 240 Balance 480 / 480 240 / 240 Weight 86 kg Intake: Oral 480 / 480 240 / 240 Other: # Voids 4 3 Date of Last Bowel Movement 07/03/18 Narrative: CTA x 2, unlabored hrt sounds rrr, no murmurs no noticeable LE edema Results Labs CBC & Chem 7: 07/05/18 05:13 07/03/18 05:05 Assessment and Plan Plan 63-year-old white male who presented to the ER with shortness of breath and lower extremity edema was admitted for neutropenia Shortness of breath - resolved Lower extremity edema - resolved Lasix stopped Possible diastolic heart failure as EF is within normal limits Lower extremity edema could also come from Norvasc which has been stopped. Counseled the patient that he should only take Lasix as needed for lower extremity edema for now and to follow-up with his PCP as an outpatient to monitor her blood pressure control. Neutropenia No sign of fever at this time, BM bx results pending, oncology waiting to R/O acute leukemia. heparin after procedure if plts stable Progress Note: Quality VTE Deep Vein Thrombosis/Pulmonary Embolism Present on Admission: No
[2018-07-04] MEDS ORDERED: Filgrastim Inj 300 MCG/ML Vial SQ ONE (20:30)
[2018-07-05] MEDS: oxyCODONE/Acetaminophen 10/325 Tablet PO PRN ×4 (00:52→13:22)
[2018-07-05 06:11] LABS: Baso % (Auto) 0.2 % (0.0-2.0); Eos % (Auto) 0.5 % (0.0-4.0); Hematocrit 32.4 % (39.0-51.0); Hemoglobin 10.7 gm/dL (13.0-17.0); Lymph # (Auto) 2.1 th/mm3 (1.0-4.8); Lymph % (Auto) 21.3 % (9.0-44.0); Mean Corpuscular HGB Conc 33.1 % (32.0-36.0); Mean Corpuscular Volume 87.4 fL (80.0-100.0); Mean Platelet Volume 9.5 fL (7.0-11.0); Mono # (Auto) 0.5 th/mm3 (0.0-0.9); Mono % (Auto) 5.5 % (0.0-8.0); Neut % (Auto) 72.5 % (16.0-70.0); Platelet Count 116 th/mm3 (150-450); Red Blood Count 3.71 mil/mm3 (4.50-5.90); Red Cell Distribution Width 15.5 % (11.6-17.2); White Blood Count 9.7 th/mm3 (4.0-11.0)
[2018-07-05 07:28] LABS: Eosinophils 1 % (0-4); Lymphocytes 22 % (9-44); Metamyelocytes 3 % (0-1); Monocytes 3 % (0-8); Myelocytes 2 % (0-0); Platelet Morphology Normal (Normal); Tallied Nucleated RBC 2 (0-0)
[2018-07-05 07:29] LABS: Ovalocytes 1+
[2018-07-05] MEDS: Morphine Sulfate 30 MG SR Tablet PO SCH (08:15)
[2018-07-05] MEDS: Metoprolol Tartrate 50 MG Tablet PO SCH (08:15)
[2018-07-05] MEDS: Gabapentin 300 MG Capsule PO SCH (08:15)
[2018-07-05] MEDS ORDERED: Naloxone Inj 0.4 MG/ML Vial IV.PUSH PRN (09:36)
--- NOTE | 2018-07-05 09:39 | P.PNONC ---
Subjective Interval history: Afebrile. Patient states he is feeling much better. He has mild soreness at bone marrow biopsy site. He requests his Oramorph to reflect his home dosage. He reports he has been experiencing some anxiety. Objective Vital Signs/Intake & Output: Vital Signs 07/04/18 12:00 07/04/18 16:00 07/04/18 20:00 Temperature 98.5 F 98.5 F 98.6 F Pulse Rate 71 82 81 Respiratory Rate 16 16 16 Blood Pressure 129/83 133/81 141/85 H Pulse Oximetry 96 97 96 07/05/18 00:00 07/05/18 04:00 07/05/18 08:10 Temperature 98.1 F 98.8 F Pulse Rate 86 87 93 H Respiratory Rate 18 18 18 Blood Pressure 134/79 143/89 H 150/93 H Pulse Oximetry 94 L 96 96 Intake & Output 07/04/18 07/05/18 07/05/18 18:59 06:59 18:59 Intake Total 480 / 480 Output Total 300 / 300 Balance 180 / 180 Weight 81.5 kg Intake: Oral 480 / 480 Output: Urine 300 / 300 Other: # Voids 5 Date of Last Bowel Movement 07/03/18 Result Diagrams: 07/05/18 05:13 07/03/18 05:05 Laboratory Results: Laboratory Results - last 24 hr 07/03/18 07/05/18 14:00 05:13 WBC 9.7 RBC 3.71 L Hgb 10.7 L Hct 32.4 L MCV 87.4 MCH 29.0 MCHC 33.1 RDW 15.5 Plt Count 116 L MPV 9.5 Prelim Diff (Auto) Slide review pending Neut % (Auto) 72.5 H Lymph % (Auto) 21.3 Glynn % (Auto) 5.5 Eos % (Auto) 0.5 Baso % (Auto) 0.2 Neut # (Auto) 7.0 Lymph # (Auto) 2.1 Glynn # (Auto) 0.5 Eos # (Auto) 0.0 Baso # (Auto) 0.0 WBC Differential Manual diff final Seg Neuts % (Manual) 58 Band Neuts % (Manual) 11 H Lymphocytes % (Manual) 22 Monocytes % (Manual) 3 Eosinophils % (Manual) 1 Metamyelocytes % (Man) 3 H Myelocytes % (Man) 2 H Abs Neuts (Manual) 7.2 Nucleated RBCs/100 WBC 2 H Differential Comment . Platelet Estimate Low L Platelet Morphology Normal Ovalocytes 1+ H Keratocytes Occ H Marrow Immunophenotype Medications: Active Medications Generic Name Dose Route Start Last Admin Trade Name Chilangoq PRN Reason Stop Dose Admin Doxepin HCl 50 mg 07/02/18 21:00 07/05/18 03:24 Sinequan PO 50 mg HS MARKIE Administration Gabapentin 600 mg 07/03/18 09:00 07/05/18 08:15 Neurontin PO 600 mg DAILY MARKIE Administration Metoprolol Tartrate 50 mg 07/03/18 09:00 07/05/18 08:15 Lopressor PO 50 mg DAILY MARKIE Administration Morphine Sulfate 30 mg 07/03/18 09:00 07/05/18 08:15 Oramorph Sr PO 30 mg DAILY MARKIE Administration Oxycodone/Acetaminophen 1 tab 07/02/18 15:10 07/05/18 08:14 Percocet 10/325 Mg PO 1 tab Q4H PRN Administration Pain 7 to 10 Sodium Chloride 2 ml 07/02/18 21:00 07/05/18 08:15 Ns Flush IV.FLUSH 2 ml BID MARKIE Administration Objective Remarks: GENERAL: Well-nourished, well-developed male patient, no acute distress. SKIN: Warm and dry. Bone marrow biopsy site, small puncture wound to right iliac crest, no erythema, swelling or bruising. HEAD: Normocephalic. EYES: No scleral icterus. No injection or drainage. NECK: Supple, trachea midline. CARDIOVASCULAR: Regular rate and rhythm without murmurs. RESPIRATORY: Posterior breath sounds clear, equal bilaterally. Nonlabored at rest. GASTROINTESTINAL: Abdomen soft, non-tender, nondistended. EXTREMITIES: No cyanosis, or edema. MUSCULOSKELETAL: Adequate muscle tone. NEUROLOGICAL: No obvious focal deficit. Awake, alert, and oriented x3. PSYCHIATRIC: Appropriate mood and affect; insight and judgment normal. Assessment/Plan - Plan Mr. Gramajo is a pleasant 63-year-old male patient currently hospitalized with neutropenia. Plan: 1. Neutropenia, resolved, status post 1 dose of Neupogen. ANC today 7.2. Neupogen discontinued. 2. Bone marrow biopsy pending, flow cytometry findings consistent with myelodysplasia. Await bone marrow biopsy results. 3. Continue to monitor daily CBC. 4. Patient's pain medications adjusted to reflect his home medication dose. - Attending Statement The exam, history, and the medical decision-making described in the above note were completed with the assistance of the mid-level provider. I reviewed and agree with the findings presented. I attest that I had a [id number] encounter with the patient on the same day, and personally performed and documented my assessment and findings in the medical record. Patient wants to go home He does not have any fever Has some pain at the bone marrow biopsy site Bone marrow flow cytometry is consistent with myelodysplastic syndrome. No evidence of acute leukemia Neutropenia has resolved after 1 dose of Neupogen Patient can be discharged from my standpoint He needs to call our office on Saturday to make appointment with Dr. Oneil to discuss the final bone marrow biopsy results. Case discussed with the patient's RN who will notify the admitting physician that patient is clear for discharge from hematological standpoint
[2018-07-05] MEDS ORDERED: Morphine Sulfate 30 MG SR Tablet PO SCH (14:00)
[2018-07-05] MEDS ORDERED: Filgrastim Inj 300 MCG/ML Vial SQ SCH (14:00)
--- NOTE | 2018-07-06 09:09 | P.DS ---
DS: Providers Date of admission: 07/02/18 15:02 Primary care physician: [facility] Consults: 07/02/18 15:08 Consult to Hematology Routine Consulting Provider: Julius Real Reason for Consultation: Neutropenia, etiology uknown Notified:: Service Spoke with:: JAC Date Notified:: 07/02/18 Time Notified:: 15:46 Ordering Provider: GEORGE Brief History from admission: Mr. Gramajo is a 63-year-old male. He comes into the hospital today complaining of bilateral lower extremity swelling. He is also been having some mild shortness of breath. Workup reveals that he has a significant neutropenia. He has no prior history of neutropenia. No familial history of neutropenia. Baseline medical conditions are hypertension he is on amlodipine which may be contributory to his bilateral lower extremity edema but he says has been on this for 2 years without problems. Etiology for the neutropenia could also be related to bilateral lower extremity edema and pulmonary edema. No changes in back pain. Benign prostatic hypertrophy is present at baseline, he takes doxepin for this and started this recently. No other complaints at this time. DS: Summary Patient was admitted with some pulmonary edema and lower extremity edema as well as neutropenia. Was started on Lasix with improvement of his respiratory and fluid symptoms. Echo showed preserved EF. His amlodipine had been stopped. Underwent bone marrow biopsy for his neutropenia, remained afebrile. Flow cytometry was consistent with myelodysplasia. Patient clinically was doing well, patient was cleared by oncology to be discharged home with follow- up of biopsy results in the office. Patient has met maximal benefit from hospitalization is clinically stable for discharge. He was prescribed as needed Lasix for any recurring edema. Time Spent with Patient Total time spent providing and/or coordinating discharge services: Quality: VTE Deep Vein Thrombosis/Pulmonary Embolism Present on Admission: No Exam Narrative Exam Narrative: Awake alert, no acute distress Normocephalic, atraumatic No facial droop, no slurred speech Clear lungs bilaterally, unlabored breathing Heart sounds regular rate and rhythm, no murmurs No lower extremity edema Grossly moves all 4 extremities spontaneously Results Impressions ITS Impressions Chest X-Ray 07/02/18 12:59 CONCLUSION: Negative for acute process Knee X-Ray 07/02/18 12:59 CONCLUSION: Minimal degenerative change in the patellofemoral joint with no acute fracture or malalignment. Venous Doppler Study 07/02/18 12:59 CONCLUSION: 1. Negative for deep venous thrombosis Bone Marrow Biopsy w/ CT 07/03/18 13:15 CONCLUSION: 1. Uncomplicated CT guided bone marrow aspirate. 2. Uncomplicated CT guided bone marrow biopsy. Discharge Plan Discharge Disposition Patient Disposition: Discharge Home Discharge Condition Condition: Stable Discharge Order Discharge Orders: Discharge Order (Routine); Ordered 07/05/18 Ordered By: Zehra Timmons Oncology Clear for Discharge (Routine); Ordered 07/05/18 Ordered By: Julius Real Discharge Details Discharge Comment: DC if cleared with oncology Physicians Team ED Provider: Oscar Leonard Primary Care Provider: [facility] Attending Provider: Trace Garnica Other Providers: Uziel Ambrose Rxs /Orders / Referrals /Forms Prescriptions: New furosemide 40 mg tablet 40 mg PO DAILY PRN (Reason: leg swelling) Qty: 30 RF: 0 potassium chloride 10 mEq capsule, extended release 10 meq PO DAILY PRN (Reason: when taking furosemide) Qty: 30 RF: 0 Continue doxepin 50 mg Capsule 50 mg PO DAILY RF: 0 gabapentin 600 mg Tablet 600 mg PO DAILY RF: 0 oxycodone-acetaminophen 10-325 mg Tablet 1 tab PO Q4-6H PRN (Reason: Pain) RF: 0 metoprolol tartrate 50 mg Tablet 50 mg PO DAILY RF: 0 morphine 30 mg Capsule, Er Multiphase 24 Hr 30 mg PO TID RF: 0 Discontinued amlodipine 10 mg Tablet 10 mg PO DAILY RF: 0 Referrals: [facility] [Primary Care Provider] - See Instructions Uziel Ambrose MD [Physician] - See Instructions Discharge Instructions Patient Printed Instructions: Furosemide (By mouth) Additional Instructions: FOLLOW UP WITH DR. AMBROSE ON SATURDAY. CALL TO SETUP APPOINTMENT W/ [facility] ON SATURDAY . Your Health Problems: Neutropenia Goals to Promote Your Health: * To prevent worsening of your condition * To maintain your health at the optimal level Directions to Meet Your Goals: * Take your medications as prescribed * Follow your dietary instruction * Follow activity as directed * Keep your appointments as scheduled * Take your immunizations and boosters as scheduled * If your symptoms worsen call your PCP * If no PCP go to Urgent Care or Emergency Room Smoking is dangerous to your health. Avoid second hand smoke. You may reach the 24-hour crisis hotline for domestic abuse at . Post Discharge Care Plan Care Plan Goals: Your Health Problems: NEUTROPENIA Goals to Promote Your Health: * To prevent worsening of your condition * To maintain your health at the optimal level Directions to Meet Your Goals: * Take your medications as prescribed * Follow your dietary instruction * Follow activity as directed * Keep your appointments as scheduled * Take your immunizations and boosters as scheduled * If your symptoms worsen call your PCP * If no PCP go to Urgent Care or Emergency Room Smoking is dangerous to your health. Avoid second hand smoke. You may reach the 24-hour crisis hotline for domestic abuse at . Status ED Status: Left Department Discharge Information Discharge Date/Time: 07/05/18 20:30
== END 2018-07-05 20:30 | disposition home or self-care (01) | DRG 809 ==
LOC: PHED 12:34 → PHEDA 15:02 → PH3 16:26 → HCIN 20:48
PROVIDERS: ADMIT Hospitalist; ATTEND Hospitalist
CPT/HCPCS: 38222; 71010; 71045; 73564; 76360; 77012; 80053; 82550; 82552; 83520; 83615; 83880; 84484; 84550; 85025; 85097; 85610; 85730; 88184; 88185; 88237; 88264; 88280; 88305; 88311; 88313; 88341; 88343; 93005; 93306; 93970; 99152; 99285; C1830; G0462; J1440; J1442; J1940; J2250; J3010